=== PATIENT | female | born 1975 | race Caucasian/White ===

== ENCOUNTER 2024-12-21 10:48 | Emergency (ER) | payer MEDICAID ==
[~2024-12-21] VITALS: Ht 162.6 cm; Wt 68.0 kg
[2024-12-21 11:00] VITALS: BP 109/71; TEMP 98
[2024-12-21] MEDS ORDERED: NITR100C6 PO (11:28)
[2024-12-21] MEDS ORDERED: NITROFURANTOIN/MONOHYDRATE MACROCRYSTALS 100 MG CAPSULE ONE (11:30)
[2024-12-21 11:36] VITALS: O2SAT 99
[2024-12-21] MEDS: NITROFURANTOIN/MONOHYDRATE MACROCRYSTALS 100 MG CAPSULE PO ONE (11:36)
[2024-12-21 16:04] LABS: APPEARANCE,URINE BLOODY (CLEAR); COLOR,URINE RED (YELLOW)
[2024-12-21 16:11] LABS: BACTERIA,URINE None seen /HPF (None Seen); RBC,URINE TOO NUMEROUS TO COUN /HPF (0-2); SQUAMOUS EPITHELIAL CELL,UR 0-2 /HPF (None Seen)
== END 2024-12-21 11:37 | disposition home or self-care (01) ==
LOC: ER 10:48
DX: N39.0 Urinary tract infection, site not specified (principal)
CPT/HCPCS: 81001; 87086-TC